=== PATIENT | male | born 1965 | race Caucasian/White ===

== ENCOUNTER → 2017-05-04 13:29 | Outpatient (CLI) | payer OTHER | END | disposition home or self-care (01) | LOC: D.RT 13:29 | DX: Z02.71 Encounter for disability determination (principal) ==

== ENCOUNTER 2017-07-07 19:02 | Emergency (ER) | payer MEDICAID ==
[2017-07-07 19:38] LABS: BASOPHILS 0.1 % (0-2); HEMOGLOBIN 17.2 g/dL (13.5-17.5); IMMATURE GRANULOCYTES 0.8 % (0-5); LYMPHOCYTES 22.4 % (15-50); MCH 33.3 pg (26.0-34.0); MCHC 35.8 g/dL (31.0-37.0); MEAN PLATELET VOLUME 12.1 fL (7.4-10.4); MONOCYTES 8.2 % (2-11); NEUTROPHILS 64.5 % (40-80); PLATELET COUNT 244 10x3/uL (130-400); RBC 5.16 10x6/uL (4.20-6.10); RDW 12.8 % (11.5-14.5); WBC 15.8 10x3/uL (4.8-10.8)
[2017-07-07 19:55] LABS: ALBUMIN 3.5 g/dL (3.4-5.0); ALKALINE PHOSPHATASE 92 U/L (46-116); ALT (SGPT) 40 U/L (10-68); BILIRUBIN - TOTAL 0.38 mg/dL (0.2-1.3); CALC OSMOLALITY 276 mosm/kg (275-300); CALCIUM 8.8 mg/dL (8.5-10.1); CARBON DIOXIDE 21.1 mmol/L (21.0-32.0); CHLORIDE - SERUM 103 mmol/L (98-107); GLUCOSE 140 mg/dL (74-106); POTASSIUM - SERUM 3.9 mmol/L (3.5-5.1); PROTEIN - SERUM 7.4 g/dL (6.4-8.2); SODIUM 138 mmol/L (136-145); UREA NITROGEN 10 mg/dL (7-18); eGFR NON AFRICAN AMERICAN 83 mL/min (90-120)
[2017-07-07 19:57] LABS: TROPONIN-I < 0.017 ng/mL (0.000-0.060)
== END 2017-07-07 21:12 | disposition home or self-care (01) ==
LOC: D.ER 19:02
PROVIDERS: Family Medicine
DX: J20.9 Acute bronchitis, unspecified (principal); R07.81 Pleurodynia; F17.200 Nicotine dependence, unspecified, uncomplicated

== ENCOUNTER 2019-11-26 08:03 | Day surgery (SDC) | payer MEDICAID ==
[~2019-11-26] VITALS: Ht 175.3 cm; Wt 98.4 kg
--- NOTE | ~2019-11-26 | OP ---
PATIENT NAME: JUSTIN GARCIA MEDICAL RECORD: [id number] :63 LOCATION:D.OPS ADMISSION DATE: SURGEON: JOSE SABILLON MD DATE OF OPERATION: 11/26/2019 PREOPERATIVE DIAGNOSIS: Displaced left fifth metacarpal neck fracture. POSTOPERATIVE DIAGNOSIS: Displaced left fifth metacarpal neck fracture. PROCEDURE: Closed reduction and percutaneous pinning of left fifth metacarpal neck fracture. SURGEON: Jose Sabillon MD. ANESTHESIA: General. INTRAOPERATIVE COMPLICATIONS: None. SUMMARY OF PATHOLOGIC FINDINGS: The patient's bone and palm deformity was reduced back to an anatomic position and then cross pinned with 0.045 K wires. OPERATIVE SUMMARY IN DETAIL: After obtaining the appropriate preoperative orthopedic surgery consent as well as anesthetic consultation, evaluation and clearance, the patient was brought to the operating room and placed on the operating table in a supine position. After adequate general laryngeal mask anesthesia was administered, the appropriate timeout was taken and agreed upon by all. After appropriate routine sterile prep and drape, a reduction maneuver of the fifth metacarpal was done again under fluoroscopy and holding the reduction cross pinning of the metacarpal neck fracture was done with 0.045 K wires. Final radiographs were submitted to radiology for final review. K-wires were then clipped and bent, and appropriate sterile dressings were applied. The patient was awakened and taken to the recovery room in stable condition. All final needle and sponge counts were correct. TRANSINT:[id number] Voice Confirmation ID: [id number] DOCUMENT ID: [id number] JOSE SABILLON MD CC: [id number] DICTATION DATE: 11/29/19 0836 SUPERVISOR PRE WAVE: 11/29/19 1501 [facility] 11/26/19 [place] [id number] [place] [id number]
[~2019-11-26 08:03] MED LIST: ALBUTEROL SULF8.5 GM INH; BAYER CHEWABLE81 MG PO; BRILINTA90 MG PO; COREG 3.1253.125 MG PO; HYDROCODON-ACE1 EA10 PO; IPRAT-ALBUT 0.5-3 ML UPD; LIPITOR40 MG PO; LISINOPRIL-HCT1 EAC4 PO
[2019-11-26 08:23] LABS: HEMATOCRIT 45.5 % (42.0-54.0); HEMOGLOBIN 15.7 g/dL (13.5-17.5); MCH 31.7 pg (26.0-34.0); MCHC 34.5 g/dL (31.0-37.0); MCV 91.9 fL (80.0-100.0); MEAN PLATELET VOLUME 11.4 fL (7.4-10.4); RBC 4.95 10x6/uL (4.20-6.10); WBC 11.1 10x3/uL (4.8-10.8)
[2019-11-26 08:26] LABS: CALC OSMOLALITY 273 mosm/kg (275-300); CALCIUM 8.7 mg/dL (8.5-10.1); CARBON DIOXIDE 26.8 mmol/L (21.0-32.0); CHLORIDE - SERUM 103 mmol/L (98-107); CREATININE - SERUM 0.8 mg/dL (0.6-1.3); GLUCOSE 111 mg/dL (74-106); POTASSIUM - SERUM 3.9 mmol/L (3.5-5.1); SODIUM 137 mmol/L (136-145); UREA NITROGEN 11 mg/dL (7-18); eGFR NON AFRICAN AMERICAN > 90 mL/min (90-120)
[2019-11-26 09:17] VITALS: BP 104/61; Ht 175.3 cm; Wt 98.4 kg
== END 2019-11-26 16:05 | disposition home or self-care (01) ==
LOC: D.OPS 08:03 → D.PAN 11:15 → D.OPS 11:15
PROVIDERS: Anesthesiology; ATTEND Orthopaedic Surgery
DX: S62.337A Displaced fracture of neck of fifth metacarpal bone, left hand, initial encounter for closed fracture (principal); W10.9XXA Fall (on) (from) unspecified stairs and steps, initial encounter; Y93.9 Activity, unspecified; Y92.9 Unspecified place or not applicable